=== PATIENT | female | born 1960 | race Caucasian/White ===

== ENCOUNTER → 2020-12-11 | Outpatient (CLI) | payer OTHER ==
[~2020-12-11] MED LIST: CYCLOBENZAPRINE10 MG; HYDROXYCHLOROQ200 M1; LEVOTHYROXIN0.112 M1; MOBIC15 MG; NAPROSYN500 M1 PO; NORCO 5-325 TA1 EACH PO; PHENERGAN 25 MG25 MG PO; PROZAC 20 MG20 M1; VOLTAREN GEL 1100 G1 TOP
== END ==
LOC: RAD 10:28
PROVIDERS: ATTEND Pediatrics
DX: R06.02 Shortness of breath (principal)